=== PATIENT | female | born 1980 | race Caucasian/White ===

== ENCOUNTER → 2016-06-04 | Outpatient (CLI) | payer SELFPAY | LOC: MHCPAIN 09:20 | DX: G89.29 Other chronic pain (principal); M47.817 Spondylosis without myelopathy or radiculopathy, lumbosacral region; M12.88 Other specific arthropathies, not elsewhere classified, other specified site; M79.2 Neuralgia and neuritis, unspecified | CPT/HCPCS: G0463 ==

== ENCOUNTER → 2016-06-07 | Outpatient (CLI) | payer SELFPAY | LOC: MHCPAIN 10:53 | DX: M47.817 Spondylosis without myelopathy or radiculopathy, lumbosacral region (principal) | CPT/HCPCS: J1100; Q9967 ==

== ENCOUNTER → 2016-07-13 | Outpatient (CLI) | payer SELFPAY | LOC: MHCPAIN 11:58 | DX: G89.29 Other chronic pain (principal); M47.27 Other spondylosis with radiculopathy, lumbosacral region; M48.06 Spinal stenosis, lumbar region; M51.16 Intervertebral disc disorders with radiculopathy, lumbar region; F17.210 Nicotine dependence, cigarettes, uncomplicated | CPT/HCPCS: G0463 ==

== ENCOUNTER 2018-02-26 08:50 | Emergency (ER) | payer SELFPAY ==
[~2018-02-26] VITALS: Ht 170.2 cm; Wt 96.8 kg
[2018-02-26 08:59] VITALS: TEMP 97.7
[2018-02-26 09:21] LABS: COLLECTION METHOD CLEAN CATCH
[2018-02-26 09:34] LABS: MUCOUS Present /lpf; PH 6 (5-8); URINE APPEARANCE Cloudy; URINE BACTERIA Rare /hpf; URINE BILIRUBIN Negative (NEGATIVE); URINE BLOOD 2+ (NEGATIVE); URINE COLOR Yellow; URINE GLUCOSE Negative (NEGATIVE); URINE KETONE Negative (NEGATIVE); URINE LEUKOCYTE ESTERASE Negative (NEGATIVE); URINE NITRATE Negative (NEGATIVE); URINE PROTEIN(semi-quant) Negative (NEGATIVE); URINE RBC 0-2 /hpf; URINE UROBILINOGEN Negative (NEGATIVE)
[2018-02-26] MEDS ORDERED: LIDODERM 5% PATC1 EA TP (10:49)
[2018-02-26] MEDS ORDERED: MOBIC15 MG PO (10:49)
[2018-02-26] MEDS ORDERED: NORCO 325 MG-51 TAB PO (11:59)
[2018-02-26 12:21] VITALS: BP 115/69; PULSE 75
== END 2018-02-26 12:22 | disposition home or self-care (01) ==
LOC: COL.ER 08:50
PROVIDERS: Physician Assistant
DX: G57.00 Lesion of sciatic nerve, unspecified lower limb (principal); G89.29 Other chronic pain; M54.5 Low back pain; F17.210 Nicotine dependence, cigarettes, uncomplicated; F12.90 Cannabis use, unspecified, uncomplicated
CPT/HCPCS: J1885

== ENCOUNTER → 2018-04-09 | Outpatient (CLI) | payer SELFPAY ==
[~2018-04-09] MED LIST: LIDODERM 5% PATC1 EA TP; MOBIC15 MG PO; NORCO 325 MG-51 TAB PO
== END ==
LOC: MHCPAIN 08:24
DX: G89.29 Other chronic pain (principal); M47.817 Spondylosis without myelopathy or radiculopathy, lumbosacral region; M54.16 Radiculopathy, lumbar region; M53.3 Sacrococcygeal disorders, not elsewhere classified; M48.061 Spinal stenosis, lumbar region without neurogenic claudication
CPT/HCPCS: G0463

== ENCOUNTER 2018-07-02 10:30 | Outpatient (RCR) | payer SELFPAY | END 2018-07-07 12:49 | disposition home or self-care (01) | LOC: WSC 10:30 | DX: M51.16 Intervertebral disc disorders with radiculopathy, lumbar region (principal); M48.061 Spinal stenosis, lumbar region without neurogenic claudication ==

== ENCOUNTER 2018-07-15 21:58 | Emergency (ER) | payer SELFPAY ==
[~2018-07-15] VITALS: Ht 170.2 cm; Wt 109.1 kg
[2018-07-15 22:01] VITALS: BP 160/86; TEMP 98.4
[2018-07-15] MEDS ORDERED: AMOXICILLIN 50500 MG PO (22:59)
[2018-07-15] MEDS ORDERED: NORCO 325 MG-51 TAB PO (22:59)
[2018-07-15 23:53] VITALS: PULSE 93
== END 2018-07-15 23:53 | disposition home or self-care (01) ==
LOC: COL.ER 21:58
DX: K04.7 Periapical abscess without sinus (principal); J45.909 Unspecified asthma, uncomplicated; M54.5 Low back pain; G89.29 Other chronic pain; F17.210 Nicotine dependence, cigarettes, uncomplicated; F12.10 Cannabis abuse, uncomplicated

== ENCOUNTER 2018-07-28 10:10 | Emergency (ER) | payer SELFPAY ==
[~2018-07-28] VITALS: Ht 170.2 cm; Wt 114.1 kg
[~2018-07-28 10:10] MED LIST changes: +AMOXICILLIN 50500 MG PO
[2018-07-28 10:18] VITALS: BP 147/63; TEMP 97.9
[2018-07-28 10:59] LABS: COLLECTION METHOD CLEAN CATCH
[2018-07-28 11:06] LABS: PH 5 (5-8); URINE APPEARANCE Clear; URINE BACTERIA None Seen /hpf; URINE BILIRUBIN Negative (NEGATIVE); URINE BLOOD 2+ (NEGATIVE); URINE COLOR Yellow; URINE GLUCOSE Negative (NEGATIVE); URINE KETONE Negative (NEGATIVE); URINE LEUKOCYTE ESTERASE Negative (NEGATIVE); URINE NITRATE Negative (NEGATIVE); URINE PROTEIN(semi-quant) Negative (NEGATIVE); URINE RBC 0-2 /hpf; URINE UROBILINOGEN Negative (NEGATIVE)
[2018-07-28] MEDS ORDERED: PHENERGAN 25 TA25 MG PO (12:52)
[2018-07-28] MEDS ORDERED: ZOFRAN ODT4 MG PO (12:52)
[2018-07-28 13:01] VITALS: PULSE 71
== END 2018-07-28 13:01 | disposition home or self-care (01) ==
LOC: COL.ER 10:10
PROVIDERS: Emergency Medicine
DX: R19.7 Diarrhea, unspecified (principal); R11.2 Nausea with vomiting, unspecified; F12.90 Cannabis use, unspecified, uncomplicated

== ENCOUNTER 2023-05-14 12:07 | Emergency (ER) | payer MEDICAID ==
[~2023-05-14] VITALS: Ht 170.2 cm; Wt 119.1 kg
[~2023-05-14 12:07] MED LIST changes: +PHENERGAN 25 TA25 MG PO; +ZOFRAN ODT4 MG PO
[2023-05-14 12:16] VITALS: BP 139/67; PULSE 95; TEMP 97.5
[2023-05-14] MEDS ORDERED: NORCO 325 MG-51 TAB PO (14:25)
== END 2023-05-14 14:53 | disposition home or self-care (01) ==
LOC: COL.ER 12:07
DX: M79.605 Pain in left leg (principal); F17.210 Nicotine dependence, cigarettes, uncomplicated

== ENCOUNTER → 2023-05-15 | Outpatient (CLI) | payer MEDICAID | LOC: COL.RAD 14:37 | DX: M79.605 Pain in left leg (principal) ==

== ENCOUNTER → 2023-05-29 | Outpatient (CLI) | payer MEDICAID | LOC: MHCPAIN 09:08 | DX: M54.50 Low back pain, unspecified (principal); M53.3 Sacrococcygeal disorders, not elsewhere classified; M47.816 Spondylosis without myelopathy or radiculopathy, lumbar region; F17.210 Nicotine dependence, cigarettes, uncomplicated | CPT/HCPCS: G0463 ==

== ENCOUNTER → 2023-05-30 | Outpatient (CLI) | payer MEDICAID ==
[~2023-05-30] MED LIST changes: +Iohexol 300 - 10 ML VIAL ONE
== END ==
LOC: MHCPAIN 13:33
DX: M46.1 Sacroiliitis, not elsewhere classified (principal); M47.898 Other spondylosis, sacral and sacrococcygeal region
CPT/HCPCS: G0260; J0665; J1040; Q9967